=== PATIENT | male | born 1975 | race Caucasian/White ===

== ENCOUNTER 2021-11-04 09:58 | Emergency (ER) | payer OTHER ==
[~2021-11-04] VITALS: Ht 180.3 cm; Wt 97.1 kg
[2021-11-04] MEDS ORDERED: ADULT LOW DOSE81 M1 PO (10:21)
[2021-11-04] MEDS ORDERED: METOPROLOL SUCC25 MG PO (10:21)
== END 2021-11-04 16:11 | disposition home or self-care (01) ==
LOC: ER 09:58
DX: R07.89 Other chest pain (principal); Z20.822 Contact with and (suspected) exposure to COVID-19

== ENCOUNTER 2021-11-27 00:58 | Emergency (ER) | payer OTHER ==
[~2021-11-27] VITALS: Ht 180.3 cm; Wt 93.4 kg
[~2021-11-27 00:58] MED LIST: ADULT LOW DOSE81 M1 PO; METOPROLOL SUCC25 MG PO
[2021-11-27] MEDS ORDERED: DILTIAZEM ER120 M2 PO (01:15)
== END 2021-11-27 04:59 | disposition home or self-care (01) ==
LOC: ER 00:58
DX: I10 Essential (primary) hypertension (principal); R42 Dizziness and giddiness; F41.0 Panic disorder [episodic paroxysmal anxiety]; Z20.822 Contact with and (suspected) exposure to COVID-19